=== PATIENT | female | born 2000 | race Caucasian/White ===

== ENCOUNTER 2021-01-24 10:22 | Emergency (ER) | payer MEDICAID ==
[~2021-01-24] VITALS: Ht 160 cm; Wt 77.3 kg
[2021-01-24 11:32] LABS: BASO % 0.7 % (0.0-2.0); EOS # 0.1 (0.0-0.7); EOS % 1.8 % (0-4.0); GRAN # 3.8 (1.4-6.5); GRAN % 69.5 % (42.2-75.2); HEMOGLOBIN 10.2 g/dl (12.5-16.0); LYMPH # 1.1 (1.2-3.4); LYMPH % 19.9 % (20.0-51.0); MEAN CELL VOLUME 72 fl (80.0-100.0); MEAN CORPUSCULAR HEMOGLOBIN 22 pg (27.0-31.0); MEAN CORPUSCULAR HGB CONC 30 g/dl (33.0-37.0); MONO # 0.4 (0.1-0.6); MONO % 7.7 % (1.7-9.3); PLATELET COUNT 301 K/mm3 (130-400); RED BLOOD COUNT 4.69 M/mm3 (4.10-5.30); REDCELL DISTRIBUTION WIDTH-CV 28.2 % (11.5-14.5)
[2021-01-24 11:33] LABS: HEMATOCRIT 33.6 % (37.0-47.0)
[2021-01-24 11:35] LABS: ALANINE AMINOTRANSFERASE 24 U/L (4-34); ALBUMIN 4.3 gm/dL (3.5-5.0); ALKALINE PHOSPHATASE 77 U/L (50-136); ANION GAP 6 mmol/L (7-16); AST,SGOT 30 U/L (15-37); BILIRUBIN,TOTAL < 0.1 mg/dL (0.0-1.0); BLOOD UREA NITROGEN 13 mg/dL (7-17); C-REACTIVE PROTEIN 1.2 mg/dL (0.0-0.9); CALCIUM 9.4 mg/dL (8.4-10.2); CARBON DIOXIDE 27 mmol/L (22-30); CHLORIDE 106 mmol/L (98-107); CREATININE, serum 0.76 (0.52-1.25); GLUCOSE 106 mg/dL (74-106); IRON,SERUM 23 ug/dL (35-150); POTASSIUM 4.2 mmol/L (3.4-5.0); SODIUM 138 mmol/L (137-145); TOTAL PROTEIN 7.5 gm/dL (6.4-8.2)
[2021-01-24] MEDS ORDERED: IRON TABLETS325 MG PO (12:04)
[2021-01-24 14:00] VITALS: BP 128/64; PULSE 72; TEMP 98.3
== END 2021-01-24 12:54 | disposition home or self-care (01) ==
LOC: COL.ER 10:22
PROVIDERS: Nurse Practitioner
DX: D50.9 Iron deficiency anemia, unspecified (principal)